=== PATIENT | female | born 2000 | race Caucasian/White ===

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

== ENCOUNTER 2018-03-25 17:50 | Emergency (ER) | payer OTHER ==
[~2018-03-25] VITALS: Ht 157.5 cm; Wt 51.8 kg
[2018-03-25 18:11] VITALS: TEMP 36.7; Ht 157.5 cm; Wt 51.8 kg
--- NOTE | 2018-03-25 20:20 | DIAGNOSTIC IMAGING REPORT ---
R KNEE 3 VIEWS CLINICAL HISTORY: Right lateral knee pain. COMPARISON: None FINDINGS: Alignment of the right knee is in anatomic. No fracture or suspicious lesion is noted. Joint spaces are preserved. There is no joint effusion. IMPRESSION: Unremarkable right knee radiographs. Electronically signed by: Varghese Singh M.D. 03/25/2018 8:19 PM Dictated Date/Time: 03/25/2018 8:18 PM
--- NOTE | 2018-03-25 20:24 | DIAGNOSTIC IMAGING REPORT ---
R FOOT MIN 3 VIEWS ROUTINE CLINICAL HISTORY: R foot pain @ 1st MTP COMPARISON: None FINDINGS: Tarsometatarsal joints are intact. There is moderate soft tissue swelling medial to the right first metatarsophalangeal joint. Note is made of a 4 mm round density which projects over the right first metatarsal head. This likely reflects a bone island. Less likely, this could be related to the sesamoids. No erosions are identified. No acute fracture is identified. IMPRESSION: 1. No acute fracture or dislocation within the right foot. 2. Moderate nonspecific soft tissue swelling medial to the right first metatarsophalangeal joint. No soft tissue calcifications. No erosions. 3. 4 mm round density which projects over the right first metatarsal head. A bone island is favored. Electronically signed by: Varghese Singh M.D. 03/25/2018 8:23 PM Dictated Date/Time: 03/25/2018 8:19 PM
[2018-03-25 21:02] VITALS: BP 118/80; PULSE 68; O2SAT 98
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
== END 2018-03-25 21:03 | disposition home or self-care (01) ==
LOC: C.EDB 17:53 → C.EDD 21:03
DX: S80.01XA Contusion of right knee, initial encounter (principal); S90.31XA Contusion of right foot, initial encounter; V03.10XA Pedestrian on foot injured in collision with car, pick-up truck or van in traffic accident, initial encounter